=== PATIENT | male | born 1990 | race Caucasian/White ===

== ENCOUNTER 2021-04-10 23:14 | Emergency (ER) | payer OTHER ==
[2021-04-11] MEDS ORDERED: Boostrix 0.5 ML (Tdap) VIAL ONE (00:14)
[2021-04-11 00:46] LABS: HIV (1/2) Antibody/Antigen Non-Reactive (NonReactive); HIV 1/2 INDEX 0.08 S/CO (<1.00); Hep C IgG Ab Non-Reactive (NonReactive); Hep C Index 0.07 S/CO (0-0.79)
[2021-04-11 04:08] LABS: HBSAB Concentration 14.33 mIU/mL; Hep B Surf AB Reactive (NonReactive)
== END 2021-04-11 00:45 | disposition home or self-care (01) ==
LOC: ERS 23:14
DX: S61.233A Puncture wound without foreign body of left middle finger without damage to nail, initial encounter (principal); W46.1XXA Contact with contaminated hypodermic needle, initial encounter; Z23 Encounter for immunization
CPT/HCPCS: 86706; 86803; 87389; 90471; 90715